=== PATIENT | male | born 1990 | race Two or more races ===

== ENCOUNTER 2023-07-21 00:31 | Emergency (ER) | payer OTHER ==
[~2023-07-21] VITALS: Ht 162.6 cm; Wt 59.0 kg
== END 2023-07-21 03:09 | disposition home or self-care (01) ==
LOC: ER 00:31
DX: R53.81 Other malaise (principal); J06.9 Acute upper respiratory infection, unspecified; Z20.822 Contact with and (suspected) exposure to COVID-19; Z91.018 Allergy to other foods